=== PATIENT | female | born 1950 | race Caucasian/White ===

== ENCOUNTER 2022-04-26 22:22 | Observation (INO) | payer BC, SELFPAY ==
--- NOTE | 2022-04-26 22:15 | RT.EKG_ITS ---
APPROVED REPORT Exam: Resting ECG Reason for Exam: syncope Patient Location: E HR:75 bpm ECG Measurements Heart Rate 75 AXIS MD 176 P 42 QRSd 99 QRS -34 QT 382 T 30 QTc 427 Conclusion Sinus rhythm...normal P axis, V-rate 60- 99 left axis deviation
[2022-04-26 22:18] VITALS: BP 129/84; PULSE 72; RESP 20; TEMP 36.5; O2SAT 94
[2022-04-26 22:23] VITALS: RESP 14
--- NOTE | 2022-04-26 22:44 | ED.GENADUL_ITS ---
Discharge Plan Disposition Patient Disposition: [facility] INPATIENT Condition: Improving Discharge Details Clinical Impression: Syncope, Hypokalemia, Anemia, SARS-CoV-2 positive, UTI (urinary tract infection) Admit Date/Time: 04/27/22 02:05 Admit Provider: Ochoa Monzon Attending Provider: Ochoa Monzon Primary Care Provider: Ginny,Local ED Provider: Shen Oglesby Discharge Data Discharge Date/Time-TO BE ENTERED AT DEPARTURE: 04/27/22 10:30 Medical Decision Making This is a 71-year-old female, reports past medical history of vertigo, occasionally needing to take meclizine, otherwise healthy. She states that she drove approximately 5 hours this afternoon from [place], did not drink much water. She is up here for the weekend to attend a wedding. She states that she had some coffee and then she had a small glass of [employer] cream. She had a couple of slices of pizza. Subsequently she states that she felt warm, nauseous, mild abdominal cramping, and did vomit x1. Bystanders witnessed that she had a brief syncopal episode, patient does not recall this. Patient reports now she feels asymptomatic. She denies history of CVA or cardiac disease. She is not anticoagulated. Clinically she appears well, nontoxic, hemodynamically stable and neurologically intact. Plan is to obtain IV access, obtain cardiac work-up including CT imaging of the brain, chest x-ray, and give IV fluid. ECG Data Attestation: I personally reviewed and interpreted this ECG (s) as follows: Interpretation: Please see official report by Dr. Ray. Sinus rhythm, ventricular rate of 75, no STEMI. HPI General Mode of arrival: EMS . Date/Time Provider Initiated Documentation: 04/26/22 22:28 . Limitations to Documentation: no limitations . Information obtained by: patient and EMS . History of Present Illness 71 year old F presents to the emergency department with the chief complaint of Syncope, described as moderate, with intensity rated at 3. Quality is described as aching, and is localized to the abdomen. Patient reports no radiation. Patient started experiencing this hour(s) (1.5) and it has been other (Improving). No relieving factors improve symptom(s), Other factors that worsen symptoms (Questions dehydration) . Patient notes diaphoresis and nausea/vomiting. Patient did receive the following treatments prior to arrival, none Related Data Home Medications Medication Instructions Recorded Confirmed cefpodoxime 200 mg tablet 200 mg PO BID #14 tabs 04/27/22 ferrous sulfate 325 mg (65 mg 325 mg PO BID #30 tabs 04/27/22 iron) tablet Previous Rx's Medication Instructions Recorded cefpodoxime 200 mg tablet 200 mg PO BID #14 tabs 04/27/22 ferrous sulfate 325 mg (65 mg 325 mg PO BID #30 tabs 04/27/22 iron) tablet Allergies Allergy/AdvReac Type Severity Reaction Status Date / Time clarithromycin [From Biaxin] Allergy Intermediate Unverified 04/26/22 22:37 General Stated Complaint: Dizzy/Sync ELLY: 2 Review of Systems Constitutional Constitutional: Denies fatigue, Denies fever(s), Denies headache(s) and Denies weakness Eyes Eyes: Denies change in vision ENT Ears, Nose, Mouth, and Throat: Reports vertigo (Not currently), Denies headache(s) and Denies neck pain Cardiovascular Cardiovascular: Denies chest pain and Denies dyspnea Respiratory Respiratory: Denies dyspnea Gastrointestinal Gastrointestinal: Reports abdominal pain, Denies constipation, Denies diarrhea, Reports nausea and Reports vomiting Genitourinary Genitourinary: Denies dysuria Musculoskeletal Musculoskeletal: Denies back pain, Denies neck pain, Denies numbness and Denies tingling Integumentary/Breasts Skin/Breast: Denies rash Neurologic Neurologic: Reports vertigo (Not currently), Denies headache(s), Denies numbness, Denies tingling and Denies weakness Endocrine Endocrine: Denies fatigue Hematologic/Lymphatic Hematologic/Lymphatic: Denies easy bleeding and Denies easy bruising PFSH All Active Problems (Updated 04/27/22 @ 08:44 by Anna Marie Pruitt NP) UTI (urinary tract infection) (Acute) Vasovagal episode (Acute) Syncope (Acute) Hypokalemia (Acute) Anemia (Chronic) SARS-CoV-2 positive (Acute) Medical History Vertigo Social History Smoking/Tobacco Use Status: Never Smoking risk assessment performed?: Yes Alcohol Intake: current Alcohol Intake frequency: a few times a month Alcohol type: wine Drug use: Never Substance use type: does not use Do you feel safe at home: Yes Do you feel safe in your relationship?: Yes Exam Const General: cooperative, healthy appearing, comfortable and no acute distress Orientation: alert, awake and oriented x3 HENMT Head: normal to inspection, normocephalic and atraumatic Face and sinus: normal facial exam Mouth: moist mucous membranes Throat: posterior oropharynx normal Eyes General: appearance normal, both eyes and all related structures Conjunctivae: conjunctivae normal Neck Neck: normal visual inspection, full ROM, trachea midline and supple Resp Effort & Inspection: normal respiratory effort and able to speak in complete sentences Auscultation: clear to auscultation bilaterally Cardio Rate: regular rate Rhythm: regular rhythm GI Inspection: normal to inspection Palpation: soft, not firm, no guarding, no pulsatile masses and nontender Auscultation: normal bowel sounds Back/Spine/Pelvis Back: No back tenderness Skin General skin exam: no rashes or lesions noted Neuro General: patient alert, patient awake, patient oriented x3, moves all extremities and no focal motor deficits Cranial Nerves: CN's II-XI intact bilaterally Cognition: normal cognition Speech: speech normal Motor: muscle tone normal throughout, strength 5/5 throughout, no pronator drift, no movement abnormalities noted and no fasciculations Sensory Exam: no sensory deficits noted Extrem General: normal to inspection, full ROM, capillary refill normal, no pedal edema and no calf tenderness Psych Appearance: grossly normal Mental Status: mental status grossly normal Course Vital Signs Vital signs: Vital Signs Temperature 36.5 C 04/26/22 22:18 Pulse 72 04/26/22 22:18 Respiratory Rate 20 04/26/22 22:18 Blood Pressure 129/84 04/26/22 22:18 Pulse Oximetry 94 04/26/22 22:18 Temperature 36.5 C 04/26/22 22:18 Pulse 72 04/26/22 22:18 Respiratory Rate 14 04/26/22 22:23 Respiratory Effort Non-Labored 04/26/22 22:23 Respiratory Depth Normal 04/26/22 22:23 Respiratory Pattern Normal 04/26/22 22:23 Blood Pressure 129/84 04/26/22 22:18 Blood Pressure Position Sitting 04/26/22 22:18 Pulse Oximetry 94 04/26/22 22:18 Oxygen Delivery Method Room Air 04/26/22 22:18 Oxygen Flow Rate 0 04/26/22 22:18 Pain Level 0 04/26/22 22:18 Sign Out Sign Out Data: Sign Out Comment: Patient is visiting from [place], past medical history of vertigo but asymptomatic. Syncopal episode approximately 1.5 hours ago with nausea, vomiting, diaphoresis. Asymptomatic now. Obtaining cardiac work-up and CT of the brain. Last updated by Danis Fermin PA at 04/26/22 22:59
--- NOTE | 2022-04-26 22:45 | DI.CT_ITS ---
Exam(s) CT HEAD WO EXAM: CT HEAD WO CLINICAL HISTORY: Syncope. TECHNIQUE: Imaging Protocol: Axial computed tomography images with coronal and sagittal reformatted images were created and reviewed COMPARISON: No exams were available for comparison FINDINGS: Ventricles and Extra axial spaces: Normal in size and morphology for the patient's age. Hemorrhage: None. Cerebral parenchyma: Mild atrophy. Mild microvascular changes. Midline shift: None. Brainstem/Cerebellum: Normal. Calvarium: Normal. Visualized Paranasal sinuses/Mastoids: Opacified ethmoid and sphenoid sinuses. Partially opacified f rontal sinuses. Soft Tissues: Unremarkable. IMPRESSION: No acute intracranial process. RADIATION DOSE DELIVERED: 670.63mGy.cm Total DLP DATA REPOSITORY: All CT scans at this facility are submitted to the National Radiology Data Registry (NRDR) Dose Index Registry (DIR) with the [employer] (ACR). RADIATION OPTIMIZATION: All CT scans at this facility use at least one of these dose optimization te chniques: automated exposure control; mA and/or kV adjustment per patient size (includes targeted exa ms where dose is matched to clinical indication); or iterative reconstruction.
--- NOTE | 2022-04-26 22:45 | DI.RAD_ITS ---
Exam(s) XR CHEST 2V PA LATERAL EXAM: XR CHEST 2V PA LATERAL CLINICAL HISTORY: Syncope TECHNIQUE: 2D digital imaging was performed. COMPARISON: No exams were available for comparison FINDINGS: MEDIASTINUM: Normal. HEART: Normal size. Aorta tortuous peer PULMONARY VASCULATURE: Normal. LUNGS: Clear. PLEURAL SPACE: No pleural effusion or pneumothorax. BONE: Degenerative disc changes and kyphosis. No compression fractures.. IMPRESSION: No acute abnormality. DATA REPOSITORY: RADIATION DOSE DELIVERED:
[2022-04-26 23:02] LABS: Source Nasal/Nares
[2022-04-26 23:07] LABS: Bilirubin Negative (Negative); Blood Negative (Negative); Clarity Clear (Clear); Glucose Negative (Negative); Ketones Trace mg/dL (Negative); Leukocyte Esterase Small (Negative); Nitrite Negative (Negative); Specific Gravity 1.025 (1.005-1.025); Urobilinogen 0.2 EU/dL (Up TO 0.2); pH 5.5 (5-8)
[2022-04-26 23:08] LABS: Abs Immature Grans 0.03 10^3/uL (0.0-0.06); Absolute Basophil Count 0.03 10^3/uL (0.0-0.2); Absolute Eosinophil Count 0.19 10^3/uL (0.0-0.7); Absolute Lymphocyte Count 2.57 10^3/uL (1.2-3.4); Absolute Monocyte Count 0.76 10^3/uL (0.1-0.8); Absolute Neutrophil Count 5.13 10^3/uL (1.2-6.7); Basophils % 0.3; Eosinophils % 2.2; HCT 32.6 % (36.0-46.0); HGB 10.5 g/dL (11.2-15.7); Immature Grans % 0.3; Lymphocytes % 29.5; MCH 27.3 pg (27.0-33.0); MCHC 32.2 % (32.0-36.0); MCV 85 fL (80-95); MPV 10.7 fL (8.0-11.0); Monocytes % 8.7; Platelet Count 255 10^3/uL (130-400); RBC 3.84 10^6/uL (3.93-5.22); RDW 15.3 % (11.7-14.6); RDW-SD 47.3 fL; WBC 8.71 10^3/uL (4.4-10.8)
[2022-04-26 23:18] LABS: Bacteria Moderate HPF (Negative); C & S Indicated? Yes; Casts 0-2 Hyaline LPF (Negative); Crystals Negative HPF (Negative); Epithelial Cells Few HPF (Negative); Mucus Negative (Negative); RBC Negative HPF (0-2)
[2022-04-26 23:22] LABS: INR 1.1 (0.9-1.1); PTT Activated 22.4 sec (21.0-27.5)
[2022-04-26 23:34] LABS: ALT 22 U/L (14-59); AST 22 U/L (15-37); Albumin 3.7 g/dL (3.4-5.0); Alkaline Phosphatase 59 U/L (46-116); Anion Gap 10.5 mmol/L (3-11); BUN 13 mg/dL (7-18); Bilirubin, Total 0.3 mg/dL (0.2-1.0); CO2 26.5 mmol/L (21.0-32.0); CREATININE 0.9 mg/dL (0.55-1.02); Calcium 9.2 mg/dL (8.5-10.1); Chloride 104 mmol/L (98-107); Glucose 149 mg/dL (74-106); Sodium 141 mmol/L (136-145); Total Protein 7.3 g/dL (6.4-8.2); Troponin I < 50 ng/L (<or=60)
[2022-04-26 23:39] LABS: Potassium 2.9 mmol/L (3.5-5.1)
[2022-04-26 23:40] LABS: ETHANOL BLOOD < 3.0 mg/dL (<10)
--- NOTE | 2022-04-26 23:45 | ED.PROG_ITS ---
Date of service: 04/26/22 Time of Service: 23:45 Medical Decision Making 2330 -- I received signout from GUI Fermin with plan to follow-up on EKG, labs and CT head. EKG was reviewed and interpreted by me: Sinus rhythm 75 bpm, statin, nondiagnostic, please see report. Labs reviewed and TSH is elevated. Will obtain free T4. Anemia noted with hemoglobin of 10.5. Patient is hypokalemic with potassium of 2.9. We will administer potassium chloride 20 meq IV and 40 meq by mouth. -- CT head interpreted by radiology: negative cxr interpreted by radiology: negative 100 -- I assessed the patient. She is hemodynamically stable saturating well in no respiratory distress. She has no complaints at this time. Results were discussed with the patient and recommended plan discussed. Patient is agreeable to hospitalization. Unfortunately no beds available here at [facility]. I spoke with the health production planning supervisor about this. [facility] has no bed availability. I called [facility] and spoke with the dye house helper and there is a bed available. I received call back from Dr. Ferrera, discussed ED presentation and course, he will accept the patient in transfer. 145 -- UA with 10-20 wbcs - patient denies urinary symptoms. Corrected COVID test called by lab noting presumptive positive. I spoke with the patient and she states that she has had what she thought were mild allergy symptomsx1 week. Age-adjusted D-dimer negative. Patient refusing transfer. Plan to hospitalize here for observation and cardiac monitoring, repeat labs and further electrolyte correction as needed. I spoke with hospitalist, Dr. Monzon, discussed ED presentation and course. He will admit. No bed immediately available. I spoke with dye house helper who expects additional bed availability in AM. Lab Data Lab results reviewed: Yes I reviewed the patient's lab results. Labs: 04/26/22 22:55 Urine - Reflex from Ua Urine Culture - Pending Laboratory Tests Range/Units 04/26/22 04/26/22 04/26/22 22:30 22:35 22:55 WBC (4.4-10.8) 10^3/uL RBC (3.93-5.22) 10^6/uL Hgb (11.2-15.7) g/dL Hct (36.0-46.0) % MCV (80-95) fL MCH (27.0-33.0) pg MCHC (32.0-36.0) % RDW (11.7-14.6) % Plt Count (130-400) 10^3/uL MPV (8.0-11.0) fL Immature Gran % Neutrophils % Lymphocytes % Monocytes % Eosinophils % Basophils % Nucleated RBC % (0.0-0.3) % Absolute Neutrophils (1.2-6.7) 10^3/uL Absolute Lymphocytes (1.2-3.4) 10^3/uL Absolute Monocytes (0.1-0.8) 10^3/uL Absolute Eosinophils (0.0-0.7) 10^3/uL Absolute Basophils (0.0-0.2) 10^3/uL PT (9.3-11.0) sec INR (0.9-1.1) APTT (21.0-27.5) sec D-Dimer (<500) ng/mlFEU Sodium (136-145) mmol/L 141 Potassium (3.5-5.1) mmol/L 2.9 L Chloride (98-107) mmol/L 104 Carbon Dioxide (21.0-32.0) mmol/L 26.5 Anion Gap (3-11) mmol/L 10.5 BUN (7-18) mg/dL 13 Creatinine (0.55-1.02) mg/dL 0.9 Estimated GFR/1.73 m2 (mL/min/1.73m2) >= 60.00 Glucose (74-106) mg/dL 149 H Calcium (8.5-10.1) mg/dL 9.2 Magnesium (1.8-2.4) mg/dL 2.0 Total Bilirubin (0.2-1.0) mg/dL 0.3 AST (15-37) U/L 22 ALT (14-59) U/L 22 Alkaline Phosphatase (46-116) U/L 59 Troponin I (<or=60) ng/L < 50 Total Protein (6.4-8.2) g/dL 7.3 Albumin (3.4-5.0) g/dL 3.7 TSH (0.36-3.74) uIU/mL 4.20 H Free T4 (0.76-1.46) ng/dL 0.90 Urine Color (Yellow) Urine Clarity (Clear) Urine pH (5-8) Ur Specific [place] (1.005-1.025) Urine Protein (Negative) mg/dL Urine Ketones (Negative) mg/dL Urine Blood (Negative) Urine Nitrite (Negative) Urine Bilirubin (Negative) Urine Urobilinogen (Up TO 0.2) EU/dL Ur Leukocyte Esterase (Negative) Urine RBC (0-2) HPF Urine WBC (0-5) HPF Ur Epithelial Cells (Negative) HPF Urine Crystals (Negative) HPF Urine Bacteria (Negative) HPF Urine Casts (Negative) LPF Urine Mucus (Negative) Ur Culture Indicated? Urine Glucose (Negative) mg/dL Ethyl Alcohol (<10) mg/dL COVID-19 Source Nasal/Nares SARS-CoV-2 (PCR) (Negative) PRESUMPTIVE POSITIVE A* Range/Units 04/26/22 04/26/22 04/26/22 22:55 22:55 22:55 WBC (4.4-10.8) 10^3/uL 8.71 RBC (3.93-5.22) 10^6/uL 3.84 L Hgb (11.2-15.7) g/dL 10.5 L Hct (36.0-46.0) % 32.6 L MCV (80-95) fL 85 MCH (27.0-33.0) pg 27.3 MCHC (32.0-36.0) % 32.2 RDW (11.7-14.6) % 15.3 H Plt Count (130-400) 10^3/uL 255 MPV (8.0-11.0) fL 10.7 Immature Gran % 0.3 Neutrophils % 59.0 Lymphocytes % 29.5 Monocytes % 8.7 Eosinophils % 2.2 Basophils % 0.3 Nucleated RBC % (0.0-0.3) % 0.0 Absolute Neutrophils (1.2-6.7) 10^3/uL 5.13 Absolute Lymphocytes (1.2-3.4) 10^3/uL 2.57 Absolute Monocytes (0.1-0.8) 10^3/uL 0.76 Absolute Eosinophils (0.0-0.7) 10^3/uL 0.19 Absolute Basophils (0.0-0.2) 10^3/uL 0.03 PT (9.3-11.0) sec 11.0 INR (0.9-1.1) 1.1 APTT (21.0-27.5) sec 22.4 D-Dimer (<500) ng/mlFEU Sodium (136-145) mmol/L Potassium (3.5-5.1) mmol/L Chloride (98-107) mmol/L Carbon Dioxide (21.0-32.0) mmol/L Anion Gap (3-11) mmol/L BUN (7-18) mg/dL Creatinine (0.55-1.02) mg/dL Estimated GFR/1.73 m2 (mL/min/1.73m2) Glucose (74-106) mg/dL Calcium (8.5-10.1) mg/dL Magnesium (1.8-2.4) mg/dL Total Bilirubin (0.2-1.0) mg/dL AST (15-37) U/L ALT (14-59) U/L Alkaline Phosphatase (46-116) U/L Troponin I (<or=60) ng/L Total Protein (6.4-8.2) g/dL Albumin (3.4-5.0) g/dL TSH (0.36-3.74) uIU/mL Free T4 (0.76-1.46) ng/dL Urine Color (Yellow) Urine Clarity (Clear) Urine pH (5-8) Ur Specific [place] (1.005-1.025) Urine Protein (Negative) mg/dL Urine Ketones (Negative) mg/dL Urine Blood (Negative) Urine Nitrite (Negative) Urine Bilirubin (Negative) Urine Urobilinogen (Up TO 0.2) EU/dL Ur Leukocyte Esterase (Negative) Urine RBC (0-2) HPF Urine WBC (0-5) HPF Ur Epithelial Cells (Negative) HPF Urine Crystals (Negative) HPF Urine Bacteria (Negative) HPF Urine Casts (Negative) LPF Urine Mucus (Negative) Ur Culture Indicated? Urine Glucose (Negative) mg/dL Ethyl Alcohol (<10) mg/dL < 3.0 COVID-19 Source SARS-CoV-2 (PCR) (Negative) Range/Units 04/26/22 04/26/22 22:55 22:55 WBC (4.4-10.8) 10^3/uL RBC (3.93-5.22) 10^6/uL Hgb (11.2-15.7) g/dL Hct (36.0-46.0) % MCV (80-95) fL MCH (27.0-33.0) pg MCHC (32.0-36.0) % RDW (11.7-14.6) % Plt Count (130-400) 10^3/uL MPV (8.0-11.0) fL Immature Gran % Neutrophils % Lymphocytes % Monocytes % Eosinophils % Basophils % Nucleated RBC % (0.0-0.3) % Absolute Neutrophils (1.2-6.7) 10^3/uL Absolute Lymphocytes (1.2-3.4) 10^3/uL Absolute Monocytes (0.1-0.8) 10^3/uL Absolute Eosinophils (0.0-0.7) 10^3/uL Absolute Basophils (0.0-0.2) 10^3/uL PT (9.3-11.0) sec INR (0.9-1.1) APTT (21.0-27.5) sec D-Dimer (<500) ng/mlFEU 672 H Sodium (136-145) mmol/L Potassium (3.5-5.1) mmol/L Chloride (98-107) mmol/L Carbon Dioxide (21.0-32.0) mmol/L Anion Gap (3-11) mmol/L BUN (7-18) mg/dL Creatinine (0.55-1.02) mg/dL Estimated GFR/1.73 m2 (mL/min/1.73m2) Glucose (74-106) mg/dL Calcium (8.5-10.1) mg/dL Magnesium (1.8-2.4) mg/dL Total Bilirubin (0.2-1.0) mg/dL AST (15-37) U/L ALT (14-59) U/L Alkaline Phosphatase (46-116) U/L Troponin I (<or=60) ng/L Total Protein (6.4-8.2) g/dL Albumin (3.4-5.0) g/dL TSH (0.36-3.74) uIU/mL Free T4 (0.76-1.46) ng/dL Urine Color (Yellow) Yellow Urine Clarity (Clear) Clear Urine pH (5-8) 5.5 Ur Specific [place] (1.005-1.025) 1.025 Urine Protein (Negative) mg/dL Trace H Urine Ketones (Negative) mg/dL Trace H Urine Blood (Negative) Negative Urine Nitrite (Negative) Negative Urine Bilirubin (Negative) Negative Urine Urobilinogen (Up TO 0.2) EU/dL 0.2 Ur Leukocyte Esterase (Negative) Small H Urine RBC (0-2) HPF Negative Urine WBC (0-5) HPF 10-20 H Ur Epithelial Cells (Negative) HPF Few Urine Crystals (Negative) HPF Negative Urine Bacteria (Negative) HPF Moderate Urine Casts (Negative) LPF 0-2 Hyaline Urine Mucus (Negative) Negative Ur Culture Indicated? Yes Urine Glucose (Negative) mg/dL Negative Ethyl Alcohol (<10) mg/dL COVID-19 Source SARS-CoV-2 (PCR) (Negative) Sign Out Sign Out Data: Sign Out Comment: Patient is visiting from [place], past medical history of vertigo but asymptomatic. Syncopal episode approximately 1.5 hours ago with nausea, vomiting, diaphoresis. Asymptomatic now. Obtaining cardiac work-up and CT of the brain. Last updated by Danis Fermin PA at 04/26/22 22:59 Discharge Plan Disposition Patient Disposition: [facility] INPATIENT Condition: Improving Discharge Details Clinical Impression: Syncope, Hypokalemia, Anemia, SARS-CoV-2 positive, UTI (urinary tract infection) Admit Date/Time: 04/27/22 02:05 Admit Provider: Ochoa Monzon Attending Provider: Ochoa Monzon Primary Care Provider: Ginny,Local ED Provider: Shen Oglesby Discharge Data Discharge Date/Time-TO BE ENTERED AT DEPARTURE: 04/27/22 10:30
--- NOTE | 2022-04-26 23:50 | DI.VRAD_ITS ---
PROCEDURE INFORMATION: Exam: XR Chest Exam date and time: 04/26/2022 11:30 PM Age: 71 years old Clinical indication: Other: Syncope TECHNIQUE: Imaging protocol: XR of the chest. Views: 2 views. COMPARISON: No relevant prior studies available. FINDINGS: Lungs: No consolidation. Pleural spaces: Unremarkable. No pleural effusion. No pneumothorax. Heart/Mediastinum: Unremarkable. No cardiomegaly. Bones/joints: Unremarkable. IMPRESSION: No acute findings. Dictated and Authenticated by: Carlos Green MD. Ordering:JOELLEN Moscoso MD
--- NOTE | 2022-04-26 23:52 | DI.VRAD_ITS ---
PROCEDURE INFORMATION: Exam: CT Head Without Contrast Exam date and time: 04/26/2022 11:27 PM Age: 71 years old Clinical indication: Syncope and collapse TECHNIQUE: Imaging protocol: Computed tomography of the head without contrast. Radiation optimization: All CT scans at this facility use at least one of these dose optimization techniques: automated exposure control; mA and/or kV adjustment per patient size (includes targeted exams where dose is matched to clinical indication); or iterative reconstruction. COMPARISON: No relevant prior studies available. FINDINGS: Brain: Changes of mild cerebral and cerebellar atrophy. No acute focal intracranial lesions. Cerebral ventricles: No ventriculomegaly. Paranasal sinuses: Opacified ethmoid and sphenoid sinuses. Partially opacified left frontal sinus. Mastoid air cells: Unremarkable as visualized. No mastoid effusion. Bones/joints: No acute fracture. Soft tissues: Unremarkable. IMPRESSION: No acute focal intracranial lesions. Dictated and Authenticated by: Carlos Green MD. Ordering:JOELLEN Moscoso MD
[2022-04-27] MEDS: POTASSIUM CHLORIDE 20 MEQ/100 ML BAG 50 MEQ IVPB (00:47)
[2022-04-27] MEDS: Potassium Chloride 20 MEQ TABCR 40 MEQ PO (00:47)
[2022-04-27] MEDS: Normal Saline 1,000 ML 1000 ML IV (00:47)
[2022-04-27 01:38] LABS: COVID-19 PCR PRESUMPTIVE POSITIVE (Negative)
[2022-04-27 01:40] LABS: D-Dimer 672 ng/mlFEU (<500)
--- NOTE | 2022-04-27 02:25 | W.PM.HP.N ---
Date of service: 04/27/22 Time of Service: 02:25 Assessment and Plan Assessment and plan (1) Syncope: Start date: 04/27/22 Status: Acute Assessment and plan: This is a 71-year-old lady who is generally healthy except for mild vertigo at times using meclizine. She is traveling and did not stop for bathroom breaks and had minimal intake. Her 5-hour trip from [place] for wedding in [place]. She had abdominal pain and vomiting at the time she had a brief episode of syncope and has been asymptomatic and at baseline since IV hydration in the ED and since being observed. Continue cardiac monitoring with IV fluid replacement as well as potassium replacement with follow-up labs in the morning. If she continues to do well she can be discharged with COVID testing to be repeated and if still equivocal she should quarantine as if she has COVID and she will need to change her plans for the weekend. If her second test is negative she should still wear a mask at all times and even outside while attending group gathering. (2) Hypokalemia: Start date: 04/27/22 Status: Acute Assessment and plan: Patient is on no medications which would cause a problem this may be from loss during her episode of vomiting as well as nutritional. IV and p.o. repletion and follow-up lab or normalization prior to discharge. (3) UTI (urinary tract infection): Start date: 04/27/22 Status: Acute Assessment and plan: Patient is asymptomatic but did have a long trip with decreased intake and no stops. Culture and patient was given IV Rocephin with discharged on oral antibiotics until culture can be resulted which may take 48 to 72 hours. The patient if discharged we will have to follow this up by phone. She should follow this up with her PCP once returning home. She should maintain adequate hydration. She should avoid dehydrating beverages such as caffeine or alcohol. (4) Vasovagal episode: Start date: 04/27/22 Status: Acute Assessment and plan: Patient appears to have had a vagal episode with her vomiting which may have been the main reason for her syncopal episode along with a multiplicity of other issues such as UTI, mild anemia and possible viral infection. (5) Anemia: Status: Chronic Assessment and plan: This may be a chronic problem with patient having minimal medical care. Check for deficiencies and supplement as indicated. Patient needs to follow this up with her PCP. History of Present Illness History of Present Illness Chief Complaint: Syncope with abdominal pain, vasovagal, hypokalemia, UTI Narrative: This is a 71-year-old male present to the emergency department with the chief complaint of Syncope,?described as moderate,?with intensity rated at 3.?Quality is described as aching,?and is localized to the abdomen.?Patient reports no radiation.?Patient started experiencing this hour(s) (1.5)?and it has been other (Improving).?No relieving factors improve symptom(s),?Other factors that worsen symptoms (Questions dehydration) .?Patient notes diaphoresis and nausea/vomiting. This is a 71-year-old female, reports past medical history of vertigo, occasionally needing to take meclizine, otherwise healthy.? She states that she drove approximately 5 hours this afternoon from [place], did not drink much water because she did not want to have to urinate.? She has no history of UTIs or dysuria during the strep. She is in [place] for the weekend to attend a wedding and came up with friends.? She states that she had some coffee and then she had a small glass of [employer] French cream.? She usually drinks wine and on weekends only. She had a couple of slices of pizza.? Subsequently she states that she felt warm, nauseous, mild abdominal cramping, and did vomit x1.? Bystanders witnessed that she had a brief syncopal episode, patient does not recall this episode.? Patient reports now she feels asymptomatic.? She denies history of CVA or cardiac disease.? She is not anticoagulated.? Clinically she appears well, nontoxic, hemodynamically stable and neurologically intact.? She had IV hydration in the ED with potassium replacement and labs revealed mild anemia without microcytosis, and possible UTI with culture pending and Rocephin given in the ED. At the time I saw the patient she was feeling at baseline and nervous about being possibly positive for COVID with this test to be repeated. She does live alone and will depend on her friends to bring her back home. If her repeat test is negative and she shows no dysrhythmia short-term monitoring as well as labs normalizing she would be able to be discharged and attend public event with a mask at all times. See ED evaluation and clinical decision making below. Emergency room clinical evaluation and decision makin -- I received signout from GUI Fermin with plan to follow-up on EKG, labs and CT head. EKG was reviewed and interpreted by me: Sinus rhythm 75 bpm, statin, nondiagnostic, please see report. Labs reviewed and TSH is elevated.? Will obtain free T4.? Anemia noted with hemoglobin of 10.5.? Patient is hypokalemic with potassium of 2.9.? We will administer potassium chloride 20 meq IV and 40 meq by mouth. 100 -- I assessed the patient.? She is hemodynamically stable saturating well in no respiratory distress.? She has no complaints at this time.? Results were discussed with the patient and recommended plan discussed.? Patient is agreeable to hospitalization.? Unfortunately no beds available here at [facility].? I spoke with the health vine fruit farming supervisor about this.? [facility] has no bed availability. I called [facility] and spoke with the supervisor brew house and there is a bed available.? I received call back from Dr. Ferrera, discussed ED presentation and course, he will accept the patient in transfer. 145 --? Corrected COVID test called by lab noting presumptive positive.? I spoke with the patient and she states that she has had what she thought were mild allergy symptomsx1 week.? Age-adjusted D-dimer negative. Patient refusing transfer. She will be admitted to the medicine service but in the ED for IV fluids with potassium, treatment for UTI and follow-up lab with cardiac monitoring. Review of Systems Narrative: 13 point review of systems unrevealing or stable. Patient has had no recent episodes of vertigo and never has had a vasovagal syncopal episode in the past. With this episode she had no incontinence of urine or stool or seizure-like activity and was described as brief been reported by a nurse friend and a gynecological physician friend. PFSH All Active Problems (Updated 04/27/22 @ 02:38 by Ochoa Monzon) UTI (urinary tract infection) (Acute) Vasovagal episode (Acute) Syncope (Acute) Hypokalemia (Acute) Anemia (Chronic) SARS-CoV-2 positive (Acute) Medical History Vertigo Social History Smoking/Tobacco Use Status: Never Smoking risk assessment performed?: Yes Alcohol Intake: current Alcohol Intake frequency: a few times a month Alcohol type: wine Drug use: Never Substance use type: does not use Do you feel safe at home: Yes Do you feel safe in your relationship?: Yes Meds Allergies and Home Medications Allergies Allergy/AdvReac Type Severity Reaction Status Date / Time clarithromycin [From Biaxin] Allergy Intermediate Unverified 04/26/22 22:37 Home Medications Medication Instructions Recorded Confirmed Type Unknown [No Known Home Meds] 04/26/22 04/26/22 History Exam Narrative Exam Narrative: General: Patient appears appropriate for age, alert and oriented x3 and in no acute distress. She has slightly pressured speech and is anxious. Patient is in isolation room because of the equivocal COVID-19 testing. HEENT: Normocephalic, eyes with pupils equal and reactive light symmetrically, extraocular movement intact and sclera anicteric. Oropharynx moist mucosa with good dentition. Neck: Supple without JVD. No auscultated bruits. Back: Normal posture with no CVA tenderness. Lungs: Good aeration with clear lung brooks to auscultation. No rhonchi, rales or expiratory wheeze. Breast: Exam deferred. Heart: Regular rate and rhythm with no murmurs or gallops appreciated. Abdomen: Slightly obese contour, soft nontender to palpation with no palpable hepatosplenomegaly. Bowel sounds positive in all 4 EXTR. No guarding. Genitalia/rectal: Exam deferred. Extremities: Without clubbing, cyanosis or edema. Peripheral pulses intact. Mild arthritic changes over IP joints. Skin: Normal color, warm and dry. Multiple seborrheic keratoses over the trunk. Neuro: Cranial nerves II through XII grossly intact. No focalizing motor deficits or tremor. No Babinski's. DTRs physiologic and symmetrical. Cerebellar testing was not performed. Psych: Slightly anxious but otherwise normal affect and mood. No abnormal thought processes. Remote and recent memory intact. Results Imaging Imaging Studies: Exam: CT Head Without Contrast Exam date and time: 04/26/2022 11:27 PM Age: 71 years old Clinical indication: Syncope and collapse TECHNIQUE: Imaging protocol: Computed tomography of the head without contrast. Radiation optimization: All CT scans at this facility use at least one of these dose optimization techniques: automated exposure control; mA and/or kV adjustment per patient size (includes targeted exams where dose is matched to clinical indication); or iterative reconstruction. COMPARISON: No relevant prior studies available. FINDINGS: Brain: Changes of mild cerebral and cerebellar atrophy. No acute focal intracranial lesions. Cerebral ventricles: No ventriculomegaly. Paranasal sinuses: Opacified ethmoid and sphenoid sinuses. Partially opacified left frontal sinus. Mastoid air cells: Unremarkable as visualized. No mastoid effusion. Bones/joints:? No acute fracture. Soft tissues: Unremarkable.? IMPRESSION: No acute focal intracranial lesions Exam: XR Chest Exam date and time: 04/26/2022 11:30 PM Age: 71 years old Clinical indication: Other: Syncope TECHNIQUE: Imaging protocol: XR of the chest. Views: 2 views. COMPARISON: No relevant prior studies available. FINDINGS: Lungs: No consolidation. Pleural spaces: Unremarkable. No pleural effusion. No pneumothorax. Heart/Mediastinum: Unremarkable. No cardiomegaly. Bones/joints: Unremarkable. IMPRESSION: No acute findings. Labs Result diagrams: 04/26/22 22:55 04/26/22 22:55 Labs: Laboratory Results - last 24 hr 04/26/22 04/26/22 04/26/22 22:30 22:35 22:55 WBC RBC Hgb Hct MCV MCH MCHC RDW Plt Count MPV Immature Gran % Neutrophils % Lymphocytes % Monocytes % Eosinophils % Basophils % Nucleated RBC % Absolute Neutrophils Absolute Lymphocytes Absolute Monocytes Absolute Eosinophils Absolute Basophils PT INR APTT D-Dimer Sodium 141 Potassium 2.9 L Chloride 104 Carbon Dioxide 26.5 Anion Gap 10.5 BUN 13 Creatinine 0.9 Estimated GFR/1.73 m2 >= 60.00 Glucose 149 H Calcium 9.2 Magnesium 2.0 Total Bilirubin 0.3 AST 22 ALT 22 Alkaline Phosphatase 59 Troponin I < 50 Total Protein 7.3 Albumin 3.7 TSH 4.20 H Free T4 0.90 Urine Color Urine Clarity Urine pH Ur Specific [place] Urine Protein Urine Ketones Urine Blood Urine Nitrite Urine Bilirubin Urine Urobilinogen Ur Leukocyte Esterase Urine RBC Urine WBC Ur Epithelial Cells Urine Crystals Urine Bacteria Urine Casts Urine Mucus Ur Culture Indicated? Urine Glucose Ethyl Alcohol COVID-19 Source Nasal/Nares SARS-CoV-2 (PCR) PRESUMPTIVE POSITIVE A* 04/26/22 04/26/22 04/26/22 22:55 22:55 22:55 WBC 8.71 RBC 3.84 L Hgb 10.5 L Hct 32.6 L MCV 85 MCH 27.3 MCHC 32.2 RDW 15.3 H Plt Count 255 MPV 10.7 Immature Gran % 0.3 Neutrophils % 59.0 Lymphocytes % 29.5 Monocytes % 8.7 Eosinophils % 2.2 Basophils % 0.3 Nucleated RBC % 0.0 Absolute Neutrophils 5.13 Absolute Lymphocytes 2.57 Absolute Monocytes 0.76 Absolute Eosinophils 0.19 Absolute Basophils 0.03 PT 11.0 INR 1.1 APTT 22.4 D-Dimer Sodium Potassium Chloride Carbon Dioxide Anion Gap BUN Creatinine Estimated GFR/1.73 m2 Glucose Calcium Magnesium Total Bilirubin AST ALT Alkaline Phosphatase Troponin I Total Protein Albumin TSH Free T4 Urine Color Urine Clarity Urine pH Ur Specific [place] Urine Protein Urine Ketones Urine Blood Urine Nitrite Urine Bilirubin Urine Urobilinogen Ur Leukocyte Esterase Urine RBC Urine WBC Ur Epithelial Cells Urine Crystals Urine Bacteria Urine Casts Urine Mucus Ur Culture Indicated? Urine Glucose Ethyl Alcohol < 3.0 COVID-19 Source SARS-CoV-2 (PCR) 04/26/22 04/26/22 22:55 22:55 WBC RBC Hgb Hct MCV MCH MCHC RDW Plt Count MPV Immature Gran % Neutrophils % Lymphocytes % Monocytes % Eosinophils % Basophils % Nucleated RBC % Absolute Neutrophils Absolute Lymphocytes Absolute Monocytes Absolute Eosinophils Absolute Basophils PT INR APTT D-Dimer 672 H Sodium Potassium Chloride Carbon Dioxide Anion Gap BUN Creatinine Estimated GFR/1.73 m2 Glucose Calcium Magnesium Total Bilirubin AST ALT Alkaline Phosphatase Troponin I Total Protein Albumin TSH Free T4 Urine Color Yellow Urine Clarity Clear Urine pH 5.5 Ur Specific [place] 1.025 Urine Protein Trace H Urine Ketones Trace H Urine Blood Negative Urine Nitrite Negative Urine Bilirubin Negative Urine Urobilinogen 0.2 Ur Leukocyte Esterase Small H Urine RBC Negative Urine WBC 10-20 H Ur Epithelial Cells Few Urine Crystals Negative Urine Bacteria Moderate Urine Casts 0-2 Hyaline Urine Mucus Negative Ur Culture Indicated? Yes Urine Glucose Negative Ethyl Alcohol COVID-19 Source SARS-CoV-2 (PCR) Last Vital Signs Temp 36.5 C 04/26/22 22:18 Pulse 72 04/26/22 22:18 Resp 14 04/26/22 22:23 BP 129/84 04/26/22 22:18 Pulse Ox 94 04/26/22 22:18
[2022-04-27 02:48] LABS: Iron 32 ug/dL (50-170)
[2022-04-27] MEDS: Heparin 5,000 UNITS/ML VIAL 5000 UNITS SC (03:02)
[2022-04-27 03:14] LABS: Vitamin B12 336 pg/mL (193-986)
[2022-04-27 04:09] LABS: Troponin I < 50 ng/L (<or=60)
[2022-04-27] MEDS: POTASSIUM CHLORIDE/0.9% NACL 1,000 ML 125 MEQ IV (05:14)
[2022-04-27 05:16] LABS: Source Nasopharynx
[2022-04-27 06:05] LABS: COVID-19 PCR Negative (Negative)
[2022-04-27 06:30] LABS: Abs Immature Grans 0.02 10^3/uL (0.0-0.06); Absolute Basophil Count 0.02 10^3/uL (0.0-0.2); Absolute Eosinophil Count 0.09 10^3/uL (0.0-0.7); Absolute Lymphocyte Count 1.39 10^3/uL (1.2-3.4); Absolute Monocyte Count 0.54 10^3/uL (0.1-0.8); Absolute Neutrophil Count 6.27 10^3/uL (1.2-6.7); Basophils % 0.2; Eosinophils % 1.1; HGB 9.9 g/dL (11.2-15.7); Immature Grans % 0.2; Lymphocytes % 16.7; MCH 27.1 pg (27.0-33.0); MCHC 31.9 % (32.0-36.0); MCV 85 fL (80-95); MPV 10.5 fL (8.0-11.0); Monocytes % 6.5; Neutrophils % 75.3; Platelet Count 245 10^3/uL (130-400); RBC 3.65 10^6/uL (3.93-5.22); RDW 15.2 % (11.7-14.6); RDW-SD 47.4 fL; WBC 8.33 10^3/uL (4.4-10.8)
[2022-04-27 07:11] LABS: ALT 14 U/L (14-59); AST 9 U/L (15-37); Albumin 3.4 g/dL (3.4-5.0); Alkaline Phosphatase 58 U/L (46-116); Anion Gap 8.9 mmol/L (3-11); BUN 12 mg/dL (7-18); Bilirubin, Total 0.2 mg/dL (0.2-1.0); CO2 24.1 mmol/L (21.0-32.0); CREATININE 0.7 mg/dL (0.55-1.02); Calcium 8.4 mg/dL (8.5-10.1); Chloride 108 mmol/L (98-107); Glucose 102 mg/dL (74-106); Potassium 4.3 mmol/L (3.5-5.1); Sodium 141 mmol/L (136-145); Total Protein 6.9 g/dL (6.4-8.2)
[2022-04-27 07:13] LABS: Troponin I < 50 ng/L (<or=60)
[2022-04-27 07:23] LABS: Ferritin 6 ng/mL (8-252)
[2022-04-27 07:25] LABS: Folate 19.9 ng/mL (8.6-20.0)
--- NOTE | 2022-04-27 07:30 | RT.EKG_ITS ---
APPROVED REPORT Exam: Resting ECG Reason for Exam: follow up syncope Patient Location: E HR:76 bpm ECG Measurements Heart Rate 76 AXIS OR 169 P 41 QRSd 89 QRS -31 QT 381 T 27 QTc 427 Conclusion Sinus rhythm...normal P axis, V-rate 60- 99 Left axis deviation...QRS axis (-30,-90)
[2022-04-27 07:40] VITALS: BP 150/72; BP 157/87; BP 163/103; PULSE 80; PULSE 81; PULSE 90
[2022-04-27 07:43] VITALS: BP 156/92; PULSE 88; RESP 16; TEMP 36.4; O2SAT 99
--- NOTE | 2022-04-27 07:44 | NUR.NOTE ---
pt ambulated to restroom, with no difficulty and no assist needed.
--- NOTE | 2022-04-27 08:40 | DSE_ITS ---
Date of service: 04/27/22 Time of Service: 08:40 DS: Diagnosis Discharge Diagnosis (1) Syncope: Status: Acute (2) Hypokalemia: Status: Acute (3) UTI (urinary tract infection): Status: Acute (4) Vasovagal episode: Status: Acute (5) Anemia: Status: Chronic Discharge Plan Disposition Patient Disposition: [facility] INPATIENT Condition: Improving Discharge Details Clinical Impression: Syncope, Hypokalemia, Anemia, SARS-CoV-2 positive, UTI (urinary tract infection) Primary Care Provider: Ginny,Local ED Provider: Shen Oglesby Home Meds and New Rx's Prescriptions: No Action No Known Home Meds DS: Data Vitals/I&O Vitals and I&O: Vital Signs Temperature 36.4 C L 04/27/22 07:43 Pulse 88 04/27/22 07:43 Respiratory Rate 16 04/27/22 07:43 Respiratory Effort Non-Labored 04/26/22 22:23 Respiratory Depth Normal 04/26/22 22:23 Respiratory Pattern Normal 04/26/22 22:23 Blood Pressure 156/92 H 04/27/22 07:43 Blood Pressure Position Sitting 04/26/22 22:18 Pulse Oximetry 99 04/27/22 07:43 Oxygen Delivery Method Room Air 04/26/22 22:18 Oxygen Flow Rate 0 04/26/22 22:18 Pain Level 0 04/26/22 22:18 Intake & Output 04/26/22 04/26/22 04/27/22 11:59 23:59 11:59 Intake Total 1134.167 / 1134.167 Balance 1134.167 / 1134.167 Weight 68.039 kg Intake: IV 1134.167 / 1134.167 Data Completed and Pending Labs on day of discharge: Labs from last 24 hours 04/27/22 04/27/22 04/27/22 06:20 06:20 06:20 WBC RBC Hgb Hct MCV MCH MCHC RDW Plt Count MPV Immature Gran % Neutrophils % Lymphocytes % Monocytes % Eosinophils % Basophils % Nucleated RBC % Absolute Neutrophils Absolute Lymphocytes Absolute Monocytes Absolute Eosinophils Absolute Basophils PT INR APTT D-Dimer Sodium Potassium Chloride Carbon Dioxide Anion Gap BUN Creatinine Estimated GFR/1.73 m2 Glucose Calcium Magnesium Iron Ferritin 6 L Total Bilirubin AST ALT Alkaline Phosphatase Troponin I < 50 Total Protein Albumin Vitamin B12 Folate 19.9 TSH Free T4 Urine Color Urine Clarity Urine pH Ur Specific [place] Urine Protein Urine Ketones Urine Blood Urine Nitrite Urine Bilirubin Urine Urobilinogen Ur Leukocyte Esterase Urine RBC Urine WBC Ur Epithelial Cells Urine Crystals Urine Bacteria Urine Casts Urine Mucus Ur Culture Indicated? Urine Glucose Ethyl Alcohol COVID-19 Source SARS-CoV-2 (PCR) 04/27/22 04/27/22 04/27/22 06:20 06:20 05:00 WBC 8.33 RBC 3.65 L Hgb 9.9 L Hct 31.0 L MCV 85 MCH 27.1 MCHC 31.9 L RDW 15.2 H Plt Count 245 MPV 10.5 Immature Gran % 0.2 Neutrophils % 75.3 Lymphocytes % 16.7 Monocytes % 6.5 Eosinophils % 1.1 Basophils % 0.2 Nucleated RBC % 0.0 Absolute Neutrophils 6.27 Absolute Lymphocytes 1.39 Absolute Monocytes 0.54 Absolute Eosinophils 0.09 Absolute Basophils 0.02 PT INR APTT D-Dimer Sodium 141 Potassium 4.3 D Chloride 108 H Carbon Dioxide 24.1 Anion Gap 8.9 BUN 12 Creatinine 0.7 Estimated GFR/1.73 m2 >= 60.00 Glucose 102 Calcium 8.4 L Magnesium Iron Ferritin Total Bilirubin 0.2 AST 9 L ALT 14 Alkaline Phosphatase 58 Troponin I Total Protein 6.9 Albumin 3.4 Vitamin B12 Folate TSH Free T4 Urine Color Urine Clarity Urine pH Ur Specific [place] Urine Protein Urine Ketones Urine Blood Urine Nitrite Urine Bilirubin Urine Urobilinogen Ur Leukocyte Esterase Urine RBC Urine WBC Ur Epithelial Cells Urine Crystals Urine Bacteria Urine Casts Urine Mucus Ur Culture Indicated? Urine Glucose Ethyl Alcohol COVID-19 Source Nasopharynx SARS-CoV-2 (PCR) Negative 04/27/22 04/26/22 04/26/22 03:45 22:55 22:55 WBC RBC Hgb Hct MCV MCH MCHC RDW Plt Count MPV Immature Gran % Neutrophils % Lymphocytes % Monocytes % Eosinophils % Basophils % Nucleated RBC % Absolute Neutrophils Absolute Lymphocytes Absolute Monocytes Absolute Eosinophils Absolute Basophils PT INR APTT D-Dimer 672 H Sodium Potassium Chloride Carbon Dioxide Anion Gap BUN Creatinine Estimated GFR/1.73 m2 Glucose Calcium Magnesium Iron 32 L Ferritin Total Bilirubin AST ALT Alkaline Phosphatase Troponin I < 50 Total Protein Albumin Vitamin B12 Folate TSH Free T4 Urine Color Urine Clarity Urine pH Ur Specific [place] Urine Protein Urine Ketones Urine Blood Urine Nitrite Urine Bilirubin Urine Urobilinogen Ur Leukocyte Esterase Urine RBC Urine WBC Ur Epithelial Cells Urine Crystals Urine Bacteria Urine Casts Urine Mucus Ur Culture Indicated? Urine Glucose Ethyl Alcohol COVID-19 Source SARS-CoV-2 (PCR) 04/26/22 04/26/22 04/26/22 22:55 22:55 22:55 WBC RBC Hgb Hct MCV MCH MCHC RDW Plt Count MPV Immature Gran % Neutrophils % Lymphocytes % Monocytes % Eosinophils % Basophils % Nucleated RBC % Absolute Neutrophils Absolute Lymphocytes Absolute Monocytes Absolute Eosinophils Absolute Basophils PT 11.0 INR 1.1 APTT 22.4 D-Dimer Sodium Potassium Chloride Carbon Dioxide Anion Gap BUN Creatinine Estimated GFR/1.73 m2 Glucose Calcium Magnesium Iron Ferritin Total Bilirubin AST ALT Alkaline Phosphatase Troponin I Total Protein Albumin Vitamin B12 Folate TSH Free T4 Urine Color Yellow Urine Clarity Clear Urine pH 5.5 Ur Specific [place] 1.025 Urine Protein Trace H Urine Ketones Trace H Urine Blood Negative Urine Nitrite Negative Urine Bilirubin Negative Urine Urobilinogen 0.2 Ur Leukocyte Esterase Small H Urine RBC Negative Urine WBC 10-20 H Ur Epithelial Cells Few Urine Crystals Negative Urine Bacteria Moderate Urine Casts 0-2 Hyaline Urine Mucus Negative Ur Culture Indicated? Yes Urine Glucose Negative Ethyl Alcohol < 3.0 COVID-19 Source SARS-CoV-2 (PCR) 04/26/22 04/26/22 04/26/22 22:55 22:55 22:35 WBC 8.71 RBC 3.84 L Hgb 10.5 L Hct 32.6 L MCV 85 MCH 27.3 MCHC 32.2 RDW 15.3 H Plt Count 255 MPV 10.7 Immature Gran % 0.3 Neutrophils % 59.0 Lymphocytes % 29.5 Monocytes % 8.7 Eosinophils % 2.2 Basophils % 0.3 Nucleated RBC % 0.0 Absolute Neutrophils 5.13 Absolute Lymphocytes 2.57 Absolute Monocytes 0.76 Absolute Eosinophils 0.19 Absolute Basophils 0.03 PT INR APTT D-Dimer Sodium 141 Potassium 2.9 L Chloride 104 Carbon Dioxide 26.5 Anion Gap 10.5 BUN 13 Creatinine 0.9 Estimated GFR/1.73 m2 >= 60.00 Glucose 149 H Calcium 9.2 Magnesium 2.0 Iron Ferritin Total Bilirubin 0.3 AST 22 ALT 22 Alkaline Phosphatase 59 Troponin I < 50 Total Protein 7.3 Albumin 3.7 Vitamin B12 Folate TSH 4.20 H Free T4 Urine Color Urine Clarity Urine pH Ur Specific [place] Urine Protein Urine Ketones Urine Blood Urine Nitrite Urine Bilirubin Urine Urobilinogen Ur Leukocyte Esterase Urine RBC Urine WBC Ur Epithelial Cells Urine Crystals Urine Bacteria Urine Casts Urine Mucus Ur Culture Indicated? Urine Glucose Ethyl Alcohol COVID-19 Source Nasal/Nares SARS-CoV-2 (PCR) PRESUMPTIVE POSITIVE A* 04/26/22 04/26/22 22:30 00:00 WBC RBC Hgb Hct MCV MCH MCHC RDW Plt Count MPV Immature Gran % Neutrophils % Lymphocytes % Monocytes % Eosinophils % Basophils % Nucleated RBC % Absolute Neutrophils Absolute Lymphocytes Absolute Monocytes Absolute Eosinophils Absolute Basophils PT INR APTT D-Dimer Sodium Potassium Chloride Carbon Dioxide Anion Gap BUN Creatinine Estimated GFR/1.73 m2 Glucose Calcium Magnesium Iron Ferritin Total Bilirubin AST ALT Alkaline Phosphatase Troponin I Total Protein Albumin Vitamin B12 336 Folate TSH Free T4 0.90 Urine Color Urine Clarity Urine pH Ur Specific [place] Urine Protein Urine Ketones Urine Blood Urine Nitrite Urine Bilirubin Urine Urobilinogen Ur Leukocyte Esterase Urine RBC Urine WBC Ur Epithelial Cells Urine Crystals Urine Bacteria Urine Casts Urine Mucus Ur Culture Indicated? Urine Glucose Ethyl Alcohol COVID-19 Source SARS-CoV-2 (PCR) 04/26/22 22:55 Urine - Reflex from Ua Urine Culture - Pending Preliminary micro results at discharge 04/26/22 22:55 Urine Culture - Pending Urine - Reflex from Ua [facility] All Active Problems (Updated 04/27/22 @ 08:44 by Anna Marie Pruitt NP) UTI (urinary tract infection) (Acute) Vasovagal episode (Acute) Syncope (Acute) Hypokalemia (Acute) Anemia (Chronic) SARS-CoV-2 positive (Acute) Medical History Vertigo Social History Smoking/Tobacco Use Status: Never Smoking risk assessment performed?: Yes Alcohol Intake: current Alcohol Intake frequency: a few times a month Alcohol type: wine Drug use: Never Substance use type: does not use Do you feel safe at home: Yes Do you feel safe in your relationship?: Yes
--- NOTE | 2022-04-27 09:06 | DSE_ITS ---
DS: Diagnosis Discharge Diagnosis (1) Syncope: Status: Acute (2) Hypokalemia: Status: Acute (3) UTI (urinary tract infection): Status: Acute (4) Vasovagal episode: Status: Acute (5) Anemia: Status: Chronic Discharge Plan Disposition Patient Disposition: HOME Condition: Improving Discharge Details Reason For Visit: Syncope Admit Date/Time: 04/27/22 02:05 Admit Provider: Ochoa Monzon Attending Provider: Ochoa Monzon [facility] Course: This is a 71-year-old patient, generally in good health with a history of mild vertigo, which she occasionally takes meclizine with good results.? She was traveling from [place] to [place] for a wedding and did not stop for bathroom breaks and did not hydrate well. She had an episode of abdominal pain and vomiting and had a brief episode of syncope after eating pizza and drinking wine. The etioogy for this syncope is felt to be vasovagal. She was hydrated in the ED with IV fluids and has been asymptomatic her entire stay. Cardiac labs were normal. Potassium was 2.9, repleted in the ED to 4.[address] was negative. An EKG was normal sinus rhythm. A urine specimen showed a small amount of leukocytes and ketones. After hydration, She is asymptomatic and not orthostatic. A urine culture is pending. She is medically stable for discharge home today. She had an inconclusive COVID-19 PCR on presentation which was negative on repeat. She is instructed to wear a mask and to re-test should she develop any symptoms. Home Meds and New Rx's Prescriptions: New cefpodoxime 200 mg tablet 200 mg PO BID Qty: 14 0RF Rx Instructions: must administer with a meal/food ferrous sulfate 325 mg (65 mg iron) tablet 325 mg PO BID Qty: 30 0RF Discharge Instructions Instructions: Hypokalemia (ED), Syncope (ED), Anemia (ED) Additional Instructions: Wear a mask while you are in the presence of others, even outside today. Any symptoms of covid, you should be rechecked. Your second covid test is negative. Drink lots of fluids; no alcohol. We did a urine culture. We will call you if there is a need to change the antibiotic. Follow up with PCP when you get home, may consider a cardiac event monitor Activity:: Activity as Tolerated Equipment/Supplies:: No Equipment Needed Diet:: As Tolerated Discharge Orders Discharge Orders: Discharge Order (Routine); Ordered 04/27/22 Ordered By: Anna Marie Pruitt Discharge Data Discharge Date/Time-TO BE ENTERED AT DEPARTURE: 04/27/22 10:31 DS: Summary Time Spent with Patient providing and/or coordinating discharge services: Less than 30 minutes Status at Discharge Functional status at discharge: independent ambulation Overall status at discharge: patient is progressing back to baseline Mental Status: mental status grossly normal Speech and Movement: speech and movement normal Mood: congruent mood Affect: normal affect Exam Narrative Exam Narrative: General: Patient appears appropriate for age, alert and oriented x3 and in no acute distress.? She has slightly pressured speech and is anxious.? Patient is in isolation room because of the equivocal COVID-19 testing. HEENT: Normocephalic, eyes with pupils equal and reactive light symmetrically, extraocular movement intact and sclera anicteric.? Oropharynx moist mucosa with good dentition. Neck: Supple without JVD.? No auscultated bruits. Back: Normal posture with no CVA tenderness. Lungs: Good aeration with clear lung brooks to auscultation.? No rhonchi, rales or expiratory wheeze, normal work of breathing. Heart: Regular rate and rhythm with no murmurs or gallops appreciated. Abdomen: Slightly obese contour, soft nontender to palpation with no palpable hepatosplenomegaly.? Bowel sounds positive in all 4 EXTR.? No guarding. Genitalia/rectal: Exam deferred. Extremities: Without clubbing, cyanosis or edema.? Peripheral pulses intact.? Mild arthritic changes over IP joints. Skin: Normal color, warm and dry.? Multiple seborrheic keratoses over the trunk. Neuro: Cranial nerves II through XII grossly intact.? No focalizing motor deficits or tremor.? No Babinski's.? Psych: Slightly anxious but otherwise normal affect and mood.? No abnormal thought processes.? Remote and recent memory intact. Psych Mental Status: mental status grossly normal Speech and Movement: speech and movement normal Mood: congruent mood Affect: normal affect DS: Data Vitals/I&O Vitals and I&O: Vital Signs Temperature 36.4 C L 04/27/22 07:43 Pulse 88 04/27/22 07:43 Respiratory Rate 16 04/27/22 07:43 Respiratory Effort Non-Labored 04/26/22 22:23 Respiratory Depth Normal 04/26/22 22:23 Respiratory Pattern Normal 04/26/22 22:23 Blood Pressure 156/92 H 04/27/22 07:43 Blood Pressure Position Sitting 04/26/22 22:18 Pulse Oximetry 99 04/27/22 07:43 Oxygen Delivery Method Room Air 04/26/22 22:18 Oxygen Flow Rate 0 04/26/22 22:18 Pain Level 0 04/26/22 22:18 Intake & Output 04/26/22 04/26/22 04/27/22 11:59 23:59 11:59 Intake Total 1134.167 / 1134.167 Balance 1134.167 / 1134.167 Weight 68.039 kg Intake: IV 1134.167 / 1134.167 Data Completed and Pending Labs on day of discharge: Labs from last 24 hours 04/27/22 04/27/22 04/27/22 06:20 06:20 06:20 WBC RBC Hgb Hct MCV MCH MCHC RDW Plt Count MPV Immature Gran % Neutrophils % Lymphocytes % Monocytes % Eosinophils % Basophils % Nucleated RBC % Absolute Neutrophils Absolute Lymphocytes Absolute Monocytes Absolute Eosinophils Absolute Basophils PT INR APTT D-Dimer Sodium Potassium Chloride Carbon Dioxide Anion Gap BUN Creatinine Estimated GFR/1.73 m2 Glucose Calcium Magnesium Iron Ferritin 6 L Total Bilirubin AST ALT Alkaline Phosphatase Troponin I < 50 Total Protein Albumin Vitamin B12 Folate 19.9 TSH Free T4 Urine Color Urine Clarity Urine pH Ur Specific [place] Urine Protein Urine Ketones Urine Blood Urine Nitrite Urine Bilirubin Urine Urobilinogen Ur Leukocyte Esterase Urine RBC Urine WBC Ur Epithelial Cells Urine Crystals Urine Bacteria Urine Casts Urine Mucus Ur Culture Indicated? Urine Glucose Ethyl Alcohol COVID-19 Source SARS-CoV-2 (PCR) 04/27/22 04/27/22 04/27/22 06:20 06:20 05:00 WBC 8.33 RBC 3.65 L Hgb 9.9 L Hct 31.0 L MCV 85 MCH 27.1 MCHC 31.9 L RDW 15.2 H Plt Count 245 MPV 10.5 Immature Gran % 0.2 Neutrophils % 75.3 Lymphocytes % 16.7 Monocytes % 6.5 Eosinophils % 1.1 Basophils % 0.2 Nucleated RBC % 0.0 Absolute Neutrophils 6.27 Absolute Lymphocytes 1.39 Absolute Monocytes 0.54 Absolute Eosinophils 0.09 Absolute Basophils 0.02 PT INR APTT D-Dimer Sodium 141 Potassium 4.3 D Chloride 108 H Carbon Dioxide 24.1 Anion Gap 8.9 BUN 12 Creatinine 0.7 Estimated GFR/1.73 m2 >= 60.00 Glucose 102 Calcium 8.4 L Magnesium Iron Ferritin Total Bilirubin 0.2 AST 9 L ALT 14 Alkaline Phosphatase 58 Troponin I Total Protein 6.9 Albumin 3.4 Vitamin B12 Folate TSH Free T4 Urine Color Urine Clarity Urine pH Ur Specific [place] Urine Protein Urine Ketones Urine Blood Urine Nitrite Urine Bilirubin Urine Urobilinogen Ur Leukocyte Esterase Urine RBC Urine WBC Ur Epithelial Cells Urine Crystals Urine Bacteria Urine Casts Urine Mucus Ur Culture Indicated? Urine Glucose Ethyl Alcohol COVID-19 Source Nasopharynx SARS-CoV-2 (PCR) Negative 04/27/22 04/26/22 04/26/22 03:45 22:55 22:55 WBC RBC Hgb Hct MCV MCH MCHC RDW Plt Count MPV Immature Gran % Neutrophils % Lymphocytes % Monocytes % Eosinophils % Basophils % Nucleated RBC % Absolute Neutrophils Absolute Lymphocytes Absolute Monocytes Absolute Eosinophils Absolute Basophils PT INR APTT D-Dimer 672 H Sodium Potassium Chloride Carbon Dioxide Anion Gap BUN Creatinine Estimated GFR/1.73 m2 Glucose Calcium Magnesium Iron 32 L Ferritin Total Bilirubin AST ALT Alkaline Phosphatase Troponin I < 50 Total Protein Albumin Vitamin B12 Folate TSH Free T4 Urine Color Urine Clarity Urine pH Ur Specific [place] Urine Protein Urine Ketones Urine Blood Urine Nitrite Urine Bilirubin Urine Urobilinogen Ur Leukocyte Esterase Urine RBC Urine WBC Ur Epithelial Cells Urine Crystals Urine Bacteria Urine Casts Urine Mucus Ur Culture Indicated? Urine Glucose Ethyl Alcohol COVID-19 Source SARS-CoV-2 (PCR) 04/26/22 04/26/22 04/26/22 22:55 22:55 22:55 WBC RBC Hgb Hct MCV MCH MCHC RDW Plt Count MPV Immature Gran % Neutrophils % Lymphocytes % Monocytes % Eosinophils % Basophils % Nucleated RBC % Absolute Neutrophils Absolute Lymphocytes Absolute Monocytes Absolute Eosinophils Absolute Basophils PT 11.0 INR 1.1 APTT 22.4 D-Dimer Sodium Potassium Chloride Carbon Dioxide Anion Gap BUN Creatinine Estimated GFR/1.73 m2 Glucose Calcium Magnesium Iron Ferritin Total Bilirubin AST ALT Alkaline Phosphatase Troponin I Total Protein Albumin Vitamin B12 Folate TSH Free T4 Urine Color Yellow Urine Clarity Clear Urine pH 5.5 Ur Specific [place] 1.025 Urine Protein Trace H Urine Ketones Trace H Urine Blood Negative Urine Nitrite Negative Urine Bilirubin Negative Urine Urobilinogen 0.2 Ur Leukocyte Esterase Small H Urine RBC Negative Urine WBC 10-20 H Ur Epithelial Cells Few Urine Crystals Negative Urine Bacteria Moderate Urine Casts 0-2 Hyaline Urine Mucus Negative Ur Culture Indicated? Yes Urine Glucose Negative Ethyl Alcohol < 3.0 COVID-19 Source SARS-CoV-2 (PCR) 04/26/22 04/26/22 04/26/22 22:55 22:55 22:35 WBC 8.71 RBC 3.84 L Hgb 10.5 L Hct 32.6 L MCV 85 MCH 27.3 MCHC 32.2 RDW 15.3 H Plt Count 255 MPV 10.7 Immature Gran % 0.3 Neutrophils % 59.0 Lymphocytes % 29.5 Monocytes % 8.7 Eosinophils % 2.2 Basophils % 0.3 Nucleated RBC % 0.0 Absolute Neutrophils 5.13 Absolute Lymphocytes 2.57 Absolute Monocytes 0.76 Absolute Eosinophils 0.19 Absolute Basophils 0.03 PT INR APTT D-Dimer Sodium 141 Potassium 2.9 L Chloride 104 Carbon Dioxide 26.5 Anion Gap 10.5 BUN 13 Creatinine 0.9 Estimated GFR/1.73 m2 >= 60.00 Glucose 149 H Calcium 9.2 Magnesium 2.0 Iron Ferritin Total Bilirubin 0.3 AST 22 ALT 22 Alkaline Phosphatase 59 Troponin I < 50 Total Protein 7.3 Albumin 3.7 Vitamin B12 Folate TSH 4.20 H Free T4 Urine Color Urine Clarity Urine pH Ur Specific [place] Urine Protein Urine Ketones Urine Blood Urine Nitrite Urine Bilirubin Urine Urobilinogen Ur Leukocyte Esterase Urine RBC Urine WBC Ur Epithelial Cells Urine Crystals Urine Bacteria Urine Casts Urine Mucus Ur Culture Indicated? Urine Glucose Ethyl Alcohol COVID-19 Source Nasal/Nares SARS-CoV-2 (PCR) PRESUMPTIVE POSITIVE A* 04/26/22 04/26/22 22:30 00:00 WBC RBC Hgb Hct MCV MCH MCHC RDW Plt Count MPV Immature Gran % Neutrophils % Lymphocytes % Monocytes % Eosinophils % Basophils % Nucleated RBC % Absolute Neutrophils Absolute Lymphocytes Absolute Monocytes Absolute Eosinophils Absolute Basophils PT INR APTT D-Dimer Sodium Potassium Chloride Carbon Dioxide Anion Gap BUN Creatinine Estimated GFR/1.73 m2 Glucose Calcium Magnesium Iron Ferritin Total Bilirubin AST ALT Alkaline Phosphatase Troponin I Total Protein Albumin Vitamin B12 336 Folate TSH Free T4 0.90 Urine Color Urine Clarity Urine pH Ur Specific [place] Urine Protein Urine Ketones Urine Blood Urine Nitrite Urine Bilirubin Urine Urobilinogen Ur Leukocyte Esterase Urine RBC Urine WBC Ur Epithelial Cells Urine Crystals Urine Bacteria Urine Casts Urine Mucus Ur Culture Indicated? Urine Glucose Ethyl Alcohol COVID-19 Source SARS-CoV-2 (PCR) 04/26/22 22:55 Urine - Reflex from Urine Culture - Pending Preliminary micro results at discharge 04/26/22 22:55 Urine Culture - Pending Urine - Reflex from [facility] All Active Problems (Updated 04/27/22 @ 08:44 by Anna Marie Pruitt NP) UTI (urinary tract infection) (Acute) Vasovagal episode (Acute) Syncope (Acute) Hypokalemia (Acute) Anemia (Chronic) SARS-CoV-2 positive (Acute) Medical History Vertigo Social History Smoking/Tobacco Use Status: Never Smoking risk assessment performed?: Yes Alcohol Intake: current Alcohol Intake frequency: a few times a month Alcohol type: wine Drug use: Never Substance use type: does not use Do you feel safe at home: Yes Do you feel safe in your relationship?: Yes
[2022-04-27 09:45] VITALS: BP 142/72; PULSE 74; RESP 16; O2SAT 98
== END 2022-04-27 10:31 | disposition home or self-care (01) ==
LOC: ER 04-27 08:44 → MS 04-27 09:07
PROVIDERS: Physician Assistant; Admitting Provider Family Medicine; Emergency Provider Student in an Organized Health Care Education/Training Program; Visit Provider Family Medicine
DX: R55 Syncope and collapse (principal); N39.0 Urinary tract infection, site not specified; E87.6 Hypokalemia; D64.9 Anemia, unspecified; U07.1 COVID-19
CPT/HCPCS: 36415; 80053; 87635; 93005; 96361; 96365; 96366; 96372; 96375; 99285; 70450; 71046; 80320; 81003; 81015; 82607; 82728; 82746; 83540; 83735; 84439; 84443; 84484; 85025; 85379; 85610; 85730; 87086; 93010; 99235; 99284; G0378; J0696; J1644; J3480